=== PATIENT | female | born 1980 | race American Indian/Alaskan Native ===

== ENCOUNTER 2022-03-22 05:52 | Day surgery (SDC) | payer BC ==
[2022-03-19 10:00] LABS: Hematocrit 34.9 % (30.3-42.9); Hemoglobin 11.8 gm/dl (10.1-14.3); Mean Corpuscular HGB Conc 34 % (30-34); Mean Corpuscular Volume 90 fl (79-97); Platelet Count 226 K/mm3 (140-440); Red Blood Count 3.89 M/mm3 (3.65-5.03); Red Cell Distribution Width 13.2 % (13.2-15.2)
[2022-03-19 10:11] LABS: BUN/Creatinine Ratio 15; Blood Urea Nitrogen 15 mg/dL (7-17); Hemolysis Index 0
--- NOTE | 2022-03-22 00:05 | History and Physical Report ---
History of Present Illness Date of examination: 03/19/22 Date of admission: 03/22/2022 Chief complaint: Here for surgery History of present illness: Patient presents for preop. Notes history of heavy menstrual leeding. Most recently has been irregular with her having no menses for 2-3 months following receiving COVID vaccine booster. Notes very heavy bleeding where she has to change 2 pads every two hours. Passes 50 cent piece sized clots and soils her clothes. Notes severe cramping pain requiring Motrin. Desires endometrial ablation. Past History Past Medical History: anemia, GERD, hypertension Past Surgical History: Other (gastric sleeve, D&C) Social history: no significant social history Family history: no significant family history Medications and Allergies Allergies Allergy/AdvReac Type Severity Reaction Status Date / Time No Known Allergies Allergy Unverified 03/18/22 10:13 Home Medications Medication Instructions Recorded Confirmed Last Taken Type hydroCHLOROthiazide 12.5 mg PO DAILY 03/18/22 03/18/22 Unknown History [Hydrochlorothiazide] Cetirizine HCl [ZyrTEC 10mg cap] 10 mg PO DAILY 03/19/22 03/19/22 Unknown History Omeprazole 40 mg PO DAILY 03/19/22 03/19/22 Unknown History Valacyclovir HCl [Valacyclovir] 1,000 mg PO DAILY 03/19/22 03/19/22 Unknown History Exam - Constitutional Vitals: Temp Pulse Resp BP Pulse Ox 98.1 F 81 20 145/94 99 03/19/22 09:35 03/19/22 09:35 03/19/22 09:35 03/19/22 09:35 03/19/22 09:35 General appearance: Present: no acute distress, well-nourished - Respiratory Respiratory effort: normal - Cardiovascular Rhythm: regular - Extremities Extremities: pulses symmetrical, No edema - Abdominal General gastrointestinal: Present: soft, non-tender, non-distended, normal bowel sounds Results - Labs CBC & Chem 7: 03/19/22 09:30 03/19/22 09:30 Assessment and Plan Benign EMS Will proceed with hysteroscopy D$C, polypectomy and endometrial ablation Procedure reviewed including benefits and risks (pain, bleeding, infection, d amage to surrounding tissues and structures, uterine perforation) Procedure consents signed To OR as scheduled - Patient Problems (1) Menorrhagia with irregular cycle Status: Acute (2) Endometrial polyp Status: Acute
[~2022-03-22 05:52] MED LIST: ceFAZolin/Water 2 GM/20 ML 2 GM/20 ML SYRINGE IV NR
[2022-03-22] MEDS ORDERED: LACTATED RINGERS 1,000 ML ONE (06:36)
--- NOTE | 2022-03-22 07:32 | Anesthesia Consultation ---
Anesthesia Consult and Med Hx Date of service: 03/22/22 - Airway Anesthetic Teeth Evaluation: Good ROM Head & Neck: Adequate Mental/Hyoid Distance: Adequate Mallampati Class: Class II Intubation Access Assessment: Probably Good - Pulmonary Exam CTA: No - Cardiac Exam Cardiac Exam: RRR - Pre-Operative Health Status ASA Pre-Surgery Classification: ASA2 Proposed Anesthetic Plan: General - Pulmonary Hx Smoking: No Hx Asthma: No - Cardiovascular System Hx Hypertension: Yes - Central Nervous System Hx Psychiatric Problems: No - Gastrointestinal Hx Gastroesophageal Reflux Disease: No - Other Systems Hx Alcohol Use: No Hx Cancer: No
--- NOTE | 2022-03-22 07:33 | Anesthesia Day of Surgery ---
Anesthesia Day of Surgery - Day of Surgery Patient Examined: Yes Patient H&P Reviewed: Yes Patient is NPO: Yes Beta Blockers: No Alejandro's Test: N/A
[2022-03-22] MEDS ORDERED: LACTATED RINGERS 1,000 ML IV SCH (07:45)
[2022-03-22] MEDS ORDERED: HYDROmorphone 0.5 MG/0.5 ML INJ IV PRN ×2 (08:30)
[2022-03-22] MEDS ORDERED: SODIUM CHLORIDE 0.9% IRRIG SOLN 3000 ML IR ONE (08:55)
--- NOTE | 2022-03-22 08:58 | Operative Report ---
Operative Report Operative Report: Operative Note Preoperative diagnosis: Abnormal uterine bleeding Postoperative diagnosis: Abnormal uterine bleeding status post hysteroscopy D&C and ablation Procedure hysteroscopy D&C with NovaSure endometrial ablation EBL: Minimal Anesthesia: General Complications none Total IV fluids: 550 mL Urine output: 150 mL Findings: AUA: Age-appropriate external genitalia anteverted uterus, no palpable adnexal masses, grossly normal-appearing cervix Hysteroscopy: Thin endometrium: Both ostia visualized Technique: Risks, benefits, and alternatives discussed with patient at length informed. Informed consent was obtained. The patient was up was taken to the operating room. General anesthesia was obtained without difficulty. She was prepped and draped in the normal sterile fashion in lithotomy position in [facility]. Examination under anesthesia revealed the above. Speculum was placed inside the vagina. The anterior lip of the cervix was grasped with a single-tooth tenaculum. The cervix was sounded to 5 centimeters. The uterus was sounded to 10 centimeters, giving a 5 centimeter cavity length. The cervix was gently dilated to accommodate the 7 mm diagnostic hysteroscope. Above findings were noted. The hysteroscope was removed. Sharp curettage followed. Endometrial curettings obtained and sent to pathology. NovaSure device was then introduced inside the uterus. Uterine width was assessed to be 3.5 centimeters. The cavity assessment was done and no cavity deficits identified. With these findings noted, the instrument was enabled. The NovaSure proceeded for 80 seconds at a wattage of 88. The NovaSure was removed. The hysteroscope was reintroduced. The entire endometrial cavity was noted to be completely ablated. All instruments were removed from the patient's vagina. Hemostasis was noted from the tenaculum site. The patient was taken to the recovery room in stable condition.
[2022-03-22] MEDS ORDERED: ONDANSETRON 4 MG/2 ML INJ IV PRN (09:00)
--- NOTE | 2022-03-22 09:01 | Short Stay Summary ---
Short Stay Documentation Date of service: 03/22/22 Narrative H&P: Patient with AUB presenting for hysteroscopy D&C. No complaints today. Will proceed to OR as scheduled - History H&P: obtained from office Past Medical History: anemia, GERD, hypertension Past Surgical History: Other (gastric sleeve, D&C) Social history: no significant social history - Allergies and Medications Current Medications: Allergies No Known Allergies Allergy (Verified 03/22/22 00:09) Home Medications Medication Instructions Recorded Confirmed Last Taken Type hydroCHLOROthiazide 12.5 mg PO DAILY 03/18/22 03/18/22 Unknown History [Hydrochlorothiazide] Cetirizine HCl [ZyrTEC 10mg cap] 10 mg PO DAILY 03/19/22 03/19/22 Unknown History Omeprazole 40 mg PO DAILY 03/19/22 03/19/22 Unknown History Valacyclovir HCl [Valacyclovir] 1,000 mg PO DAILY 03/19/22 03/19/22 Unknown History Active Medications Hydromorphone HCl (Hydromorphone 0.5 Mg/0.5 Ml Inj) 0.5 mg IV Q10MIN PRN PRN Reason: Pain , Severe (7-10) Stop: 03/22/22 18:00 Hydromorphone HCl (Hydromorphone 0.5 Mg/0.5 Ml Inj) 0.25 mg IV Q10MIN PRN PRN Reason: Pain, Moderate (4-6) Stop: 03/22/22 18:00 Cefazolin Sodium (Ancef/Sterile Water 2 Gm/20 Ml) 2 gm in 20 mls @ 80 mls/hr IV PREOP NR; Protocol Stop: 03/22/22 23:44 Lactated Ringer's (Lactated Ringers) 1,000 mls @ 100 mls/hr IV DIRECT HEIDI Ondansetron HCl (Ondansetron 4 Mg/2 Ml Inj) 4 mg IV ONCE PRN PRN Reason: Nausea And Vomiting Stop: 03/22/22 18:00 - Physical exam Extremities: pulses symmetrical, No edema - Disposition Disposition: HOME / SELF CARE / HOMELESS - Discharge Diagnoses (1) Menorrhagia with irregular cycle Status: Acute (2) Endometrial polyp Status: Resolved Short Stay Discharge Plan Activity: other (Pelvic rest, nothing in the vagina ) Weight Bearing Status: Full Weight Bearing Diet: regular Additional Instructions: [] Smoking cessation referral if applicable(refer to patient education folder for contact #) [] Refer to [facility] Booklet Call your doctor immediately for: * Fever > 100.5 * Heavy vaginal bleeding ( >1 pad per hour) * Severe persistent headache * Shortness of breath Prescriptions sent to your pharmacy. Take as instructed. Follow up with: KOKO SCOTT MD [Staff Physician] - 7 Days
[2022-03-22] MEDS ORDERED: HYDROcodone/ACETAMINOPHEN 5-325 MG TAB PO PRN (10:20)
[2022-03-22] MEDS ORDERED: ONDANSETRON 4 MG/2 ML INJ ONE (11:13)
[2022-03-22 13:31] VITALS: BP 142/87
--- NOTE | 2022-03-22 18:02 | Post Anesthesia Evaluation ---
- Post Anesthesia Evaluation Patient Participated: Yes Airway Patent: Yes Stable Respiratory Function: Yes Nausea/Vomiting: No Temp > 96.8F: Yes Pain Manageable: Yes Adequeate Hydration: Yes Anesthesia Complications: No Block Receding Appropriately: Not Applicable Patient on Ventilator: No
== END 2022-03-22 11:00 | disposition home or self-care (01) ==
LOC: OR 05:52
PROVIDERS: ATTEND Obstetrics & Gynecology
DX: N93.8 Other specified abnormal uterine and vaginal bleeding (principal); N84.0 Polyp of corpus uteri; N92.1 Excessive and frequent menstruation with irregular cycle; I10 Essential (primary) hypertension; Z20.822 Contact with and (suspected) exposure to COVID-19; Z79.899 Other long term (current) drug therapy; Z98.890 Other specified postprocedural states
CPT/HCPCS: 36415; 58563; 80048; 84703; 85027; 88305; J0690; J1170; J2405; J7120; U0003